=== PATIENT | male | born 1965 | race Caucasian/White ===

== ENCOUNTER → 2016-06-03 | Outpatient (CLI) | payer BC ==
[~2016-06-03] MED LIST: AMLODIPINE-BEN1 EACH PO; AMLODIPINE-BENA1 CAP PO; CYANOCOBALAM1000 MCG PO; FISH OIL 1,0001 EAC1 PO; FISH OIL 1,0001 EACH PO; Fish Oil 1; HYDROCODON-ACE1 EA14 PO; HYDROCODONE/APA1 T16 PO; IBUPROFEN800 MG PO; LIPITOR20 MG PO; MULTIPLE VITAM1 EAC1; NABUMETONE PO; PROBIOTIC1 EAC3 PO; PROTONIX PO; TIMOPTIC 0.5% OP5 M2 OU; ULORIC80 MG PO; WELLBUTRIN SR150 M1; ZYLOPRIM PO
--- NOTE | ~2016-06-03 | NM19 ---
[facility] A Service [facility] RADIOLOGY TEXT RESULTS PATIENT: EMY GUPTA LOCATION: [facility] : [birth year] UNIT #: [id number] AGE: [address]: Yovanny Miranda MD SEX: M ORDER DR: [id number] [address] [address] [id number] O MR#: [id number] Acc #: [id number] NAME: EMY GUPTA : 1965 SEX: M STUDY DATE/TIME: 06/03/2016 10:13 UNIT: [facility] ROOM: STUDY DESCRIPTION: NM Gastric Emptying Study Attending Physician: Yovanny Miranda M.D. Referring Physician: Yovanny Miranda M.D. Ordering Physician: Yovanny Miranda M.D. Primary Care Physician: Charline Fitzgerald M.D. MEDICAL IMAGING REPORT This report is preliminary unless electronic signature is present EXAM Gastric emptying study, 06/03/2016 INDICATION Abdominal bloating for the past 2 months. PROCEDURE Patient ingested 521 mcCi technetium-labeled sulfur colloid mixed in eggs and water. Imaging of the stomach was performed in the anterior and positive projections for 240 minutes. COMPARISON None. FINDINGS Stomach 0% empty at 0 minutes, 45% at 60 minutes, 73% at 120 minutes and 98% at 240 minutes. IMPRESSION Normal gastric emptying. Dictated by... Igor Rich M.D. THIS IS AN ELECTRONICALLY VERIFIED REPORT Igor Rich M.D. at 06/04/2016 10:02 AM DONNIE/tanika TD: 06/03/2016 21:48 JOB #: [id number] [facility] A [facility] RADIOLOGY TEXT RESULTS PATIENT: EMY GUPTA LOCATION: [facility] : 69 UNIT #: [id number] AGE: [address]: Yovanny Miranda MD SEX: M ORDER DR: MEDICAL IMAGING REPORT Page 1 of 1 COPY
== END | disposition home or self-care (01) ==
LOC: CNUC 09:30
DX: R14.0 Abdominal distension (gaseous) (principal)
CPT/HCPCS: 78264; A9541

== ENCOUNTER → 2016-07-08 | Outpatient (CLI) | payer BC ==
--- NOTE | ~2016-07-08 | CT2 ---
[facility] A Service of [facility] & [facility] RADIOLOGY TEXT RESULTS PATIENT: EMY GUPTA LOCATION: [facility] : 69 UNIT #: [id number] AGE: [address]: TATY BLANKENSHIP APRN SEX: M ORDER DR: [id number] [facility] [address] [place], [place] [address] [id number] O MR#: [id number] Acc #: [id number] NAME: EMY GUPTA : 1965 SEX: M STUDY DATE/TIME: 07/08/2016 13:49 UNIT: [facility] ROOM: STUDY DESCRIPTION: CT Abd and Pelv W Cont Attending Physician: Taty Blankenship Aprn Ordering Physician: Taty Blankenship Aprn Primary Care Physician: Charline Fitzgerald M.D. MEDICAL IMAGING REPORT This report is preliminary unless electronic signature is present EXAM Abdomen and pelvis CT with contrast, 07/08/2016 INDICATIONS 51-year-old male complaining of bloating all over since November of last year. History of hernia repair, no history of malignancy. Elevated liver enzymes. Elevated ferritin level, dyspepsia and generalized abdominal pain. TECHNIQUE Contrast-enhanced abdomen and pelvis CT was performed. Correlation is made with ultrasound 04/27/2014. This CT exam was performed with one or more of the following radiation dose reduction techniques: Automatic exposure control, adjustment of mA and/or kV according to patient size, and iterative reconstruction. FINDINGS CT ABDOMEN: Included lung bases demonstrate minimal atelectasis, no effusion or pericardial effusion, aorta unremarkable. The spleen is enlarged measuring nearly 18 cm AP. Adrenal glands are normal, pancreas and gallbladder unremarkable, and there is mild fatty infiltration of the liver. Kidneys demonstrate no hydronephrosis. There is a nonobstructing stone in the lower-pole left kidney measuring 7 mm and there are 2 tiny left renal cysts measuring less than 1 cm, each. CT PELVIS: There are tiny inguinal hernias bilaterally that contain fat only. The bladder is unremarkable; the prostate is within normal limits. No drainable fluid collection in the pelvis. Bowel unremarkable. Appendix normal. No inguinal adenopathy or fluid collection. Osseous structures demonstrate no suspicious bone lesion. There is degenerative change in the thoracolumbar spine. [facility] A Service of [facility] RADIOLOGY TEXT RESULTS PATIENT: EMY GUPTA LOCATION: [facility] : 69 UNIT #: [id number] AGE: [address]: TATY BLANKENSHIP FINISHING TECHNICIAN SEX: M ORDER DR: IMPRESSION 1. No clearly acute process in the abdomen or pelvis, no bowel obstruction, drainable fluid collection or focal area of inflammatory change. The appendix is normal. 2. Splenomegaly. 3. Nonobstructing left renal stone and benign left renal cysts. 4. Incidental fatty infiltration of the liver. 5. Incidental inguinal hernias containing fat only. Dictated by... Blake Carmona M.D. THIS IS AN ELECTRONICALLY VERIFIED REPORT Blake Carmona M.D. at 07/09/2016 5:35 PM JONATAN/alen TD: 07/08/2016 20:47 JOB #: [id number] MEDICAL IMAGING REPORT Page 1 of 1 COPY
--- NOTE | ~2016-07-08 | XA60 ---
[facility] A Service of [facility] & [facility] RADIOLOGY TEXT RESULTS PATIENT: EMY GUPTA LOCATION: [facility] : 69 UNIT #: [id number] AGE: [address]: TATY BLANKENSHIP APRN SEX: M ORDER DR: [id number] [facility] [address] [place], [place] [address] [id number] O MR#: [id number] Acc #: [id number] NAME: EMY GUPTA : 1965 SEX: M STUDY DATE/TIME: 07/08/2016 9:19 UNIT: [facility] ROOM: STUDY DESCRIPTION: MIGEL ALVAREZ Perc Liver Attending Physician: Taty Blankenship Aprn Ordering Physician: Taty Blankenship Aprn Primary Care Physician: Charline Fitzgerald M.D. MEDICAL IMAGING REPORT This report is preliminary unless electronic signature is present EXAM Liver biopsy under ultrasound guidance HISTORY Elevated liver enzymes. PROCEDURE The procedure, attendant risks, and options were discussed with the patient. He understands and he gives consent. Patient was placed in the supine position in the angio suite. He was left on his bed. Ultrasound exam was performed of the right flank. An appropriate site was chosen. The patient was administered conscious sedation consisting of IV Versed and Fentanyl and monitored by the IR nurse. Estimated sedation time approximately 15 minutes. The skin was cleansed with thoracic pain and sterilely draped. It was anesthetized with 1% Xylocaine. A 17-gauge 10-cm needle was advanced into the liver parenchyma and two 18-gauge cores obtained and placed in formalin. The needle was removed and hemostasis achieved. The patient placed on his right side. He is to report to the short-stay unit and will be monitored for 4 hours prior to discharge. A permanent ultrasound image was recorded. CONCLUSION 1. Successful ultrasound-guided biopsy of the right lobe of the liver. Dictated by... Evan Barrera M.D. THIS IS AN ELECTRONICALLY VERIFIED REPORT Evan Barrera M.D. at 07/08/2016 4:52 PM RAVINDRA/reshma STS. [facility] A Service of [facility] & [facility] RADIOLOGY TEXT RESULTS PATIENT: EMY GUPTA LOCATION: [facility] #: [id number] : [birth year] UNIT #: [id number] AGE: [address]: TATY BLANKENSHIP APRN SEX: M ORDER DR: TD: 07/08/2016 15:15 JOB #: [id number] MEDICAL IMAGING REPORT Page 1 of 1 COPY
[2016-07-08 07:22] LABS: HEMATOCRIT 41.3 % (38.0-50.0); HEMOGLOBIN 14.1 gm/dL (13.0-16.0); MEAN CELL VOLUME 94.4 FL (83-96); MEAN CORPUSCULAR HEMOGLOBIN 32.1 PG (28-34); MEAN PLATELET VOLUME 7.9 FL (6.5-11.5); RED BLOOD COUNT 4.38 X10e (3.90-5.60); RED CELL DISTRIBUTION WIDTH 12.5 % (11.0-15.5); WHITE BLOOD COUNT 5.2 X10e3 (4.0-10.5)
[2016-07-08 07:31] LABS: INR 1.2; PARTIAL THROMBOPLASTIN TIME 27.1 SECONDS (23.5-31.3); PROTHROMBIN TIME (PATIENT) 12.5 SECONDS (9.6-11.5)
[2016-07-08 14:40] LABS: POC - CREATININE 0.81 mg/dL (0.64-1.27); POC - GFR >60.0 mL/min (>60)
== END | disposition home or self-care (01) ==
LOC: CIVR 06:46
PROVIDERS: Nurse Practitioner
DX: K73.9 Chronic hepatitis, unspecified (principal); R14.0 Abdominal distension (gaseous); R10.84 Generalized abdominal pain; R79.89 Other specified abnormal findings of blood chemistry; R10.13 Epigastric pain; R94.5 Abnormal results of liver function studies; R16.1 Splenomegaly, not elsewhere classified; N20.0 Calculus of kidney; N28.1 Cyst of kidney, acquired; K40.20 Bilateral inguinal hernia, without obstruction or gangrene, not specified as recurrent
CPT/HCPCS: 36415; 74177; 76942; 82565; 85027; 85610; 85730; 88307; 88313; J2250; J3010; Q9967